=== PATIENT | male | born 2000 | race Caucasian/White ===

== ENCOUNTER 2021-06-15 11:42 | Outpatient (CLI) | payer BC ==
[2021-06-15 23:49] LABS: SARS-CoV-2 PCR by NAA Not Detected (NotDetected)
== END 2021-06-15 11:43 | disposition home or self-care (01) ==
LOC: CSHLAB 11:42
PROVIDERS: ATTEND Surgery
DX: Z01.812 Encounter for preprocedural laboratory examination (principal); Z20.822 Contact with and (suspected) exposure to COVID-19
CPT/HCPCS: U0003; U0005

== ENCOUNTER 2021-06-17 06:00 | Day surgery (SDC) | payer BC ==
[2021-06-16 11:24] VITALS: BMI 19.9
[2021-06-17] MEDS ORDERED: Lidocaine 1% MPF 2 ML VIAL ONE (06:08)
[2021-06-17] MEDS ORDERED: EPINEPHrine 1 MG/ML AMP ONE (06:17)
[2021-06-17] MEDS ORDERED: Bupivacaine 0.25% HCL 30 ML VIAL ONE (06:17)
[2021-06-17] MEDS ORDERED: Midazolam HCl 2 mg/2 ml Vial ONE (06:47)
[2021-06-17] MEDS ORDERED: Lidocaine 2% PF 5 ML VIAL ONE (06:53)
[2021-06-17] MEDS ORDERED: PROPOFOL 20 ML ONE (06:53)
[2021-06-17] MEDS ORDERED: Ketorolac Tromethamine 30 MG/ML VIAL ONE (07:20)
[2021-06-17] MEDS ORDERED: Ondansetron PF 4 MG/2 ML Vial ONE (07:20)
[2021-06-17] MEDS ORDERED: HYDROcodone/Acetaminophen 5/325 mg Tablet PO PRN (08:12)
== END 2021-06-17 08:40 | disposition home or self-care (01) ==
LOC: CSHSDC 06:00
PROVIDERS: ATTEND Surgery
DX: C85.98 Non-Hodgkin lymphoma, unspecified, lymph nodes of multiple sites (principal)
CPT/HCPCS: 71045; C1788; J0171; J1642; J1885; J2001; J2250; J2405; J2704; S0020

== ENCOUNTER 2021-06-27 12:01 | Outpatient (CLI) | payer BC ==
[2021-06-28 13:27] LABS: SARS-CoV-2 PCR by NAA Not Detected (NotDetected)
== END 2021-06-27 12:02 | disposition home or self-care (01) ==
LOC: CSHLAB 12:01
PROVIDERS: ATTEND Internal Medicine Hematology & Oncology
DX: Z01.812 Encounter for preprocedural laboratory examination (principal); Z20.822 Contact with and (suspected) exposure to COVID-19; C81.12 Nodular sclerosis Hodgkin lymphoma, intrathoracic lymph nodes
CPT/HCPCS: U0003; U0005

== ENCOUNTER 2021-06-30 11:06 | Outpatient (CLI) | payer BC | END 2021-06-30 11:07 | disposition home or self-care (01) | LOC: CSHCP 11:06 | PROVIDERS: ATTEND Internal Medicine Hematology & Oncology | DX: C81.12 Nodular sclerosis Hodgkin lymphoma, intrathoracic lymph nodes (principal) | CPT/HCPCS: 94010; 94726; 94729; 94760 ==